=== PATIENT | female | born 1995 | race Caucasian/White ===

== ENCOUNTER 2016-12-08 14:33 | Emergency (ER) | payer BC ==
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
[2016-12-08] MEDS ORDERED: Albuterol/Ipratropium 3.0-0.5 MG/3 ML Neb Soln NEB ONE (15:07)
[2016-12-08] MEDS ORDERED: prednisoLONE Soln 15 MG/5 ML UD Cup PO ONE (16:03)
[2016-12-08 16:34] VITALS: BP 116/67
--- NOTE | 2016-12-09 21:41 | CR ---
EXAM DATE: 12/08/16 PATIENT'S AGE: 21 Patient: TRINI QUINONEZ Facility: [place], [place] Site . Site : 1995 Study: XRay Chest [id number]/12/2017 3:36:02 PM Ordering Physician: Doctor Lagos Final Report: INDICATION: Shortness of breath. Cough and chest pressure. Technique: PA and lateral chest x-ray. Findings: Heart size within normal limits. No focal infiltrate or consolidation either lung. Chest otherwise unremarkable. Dictated by Seven Schaeffer MD @ Dec 08 2016 3:53PM (Electronic Signature) Report Signed by Proxy and Original Signed Document filed in the Medical Record. MTDD
== END 2016-12-08 16:31 | disposition home or self-care (01) ==
LOC: MW.ED 14:33
DX: J45.20 Mild intermittent asthma, uncomplicated (principal); J21.9 Acute bronchiolitis, unspecified; Z88.0 Allergy status to penicillin; Z88.1 Allergy status to other antibiotic agents
CPT/HCPCS: 36415; 71020; 71020-26; 85025; 87081; 87804; 87880; 94664; 99284; 99284-25

== ENCOUNTER 2017-01-15 00:42 | Emergency (ER) | payer BC ==
[2017-01-15] MEDS ORDERED: Bacitracin Oint 1 GM U/D Packet TOP ONE (00:57)
[2017-01-15] MEDS ORDERED: Diphtheria,Pertussis(Acell),Tetanus Vaccine 0.5 ML Syringe IM ONE (00:58)
[2017-01-15] MEDS ORDERED: Acetaminophen/HYDROcodone 325-7.5 MG Tab PO ONE (00:58)
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
[2017-01-15 03:30] VITALS: BP 114/77
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
== END 2017-01-15 02:35 | disposition home or self-care (01) ==
LOC: MW.ED 00:42
DX: S70.02XA Contusion of left hip, initial encounter (principal); S50.12XA Contusion of left forearm, initial encounter; S70.212A Abrasion, left hip, initial encounter; Z23 Encounter for immunization; Z88.0 Allergy status to penicillin; Z88.1 Allergy status to other antibiotic agents; V29.88XA Motorcycle rider (driver) (passenger) injured in other specified transport accidents, initial encounter; Y92.410 Unspecified street and highway as the place of occurrence of the external cause
CPT/HCPCS: 73090; 73502; 90471; 90715; 99283; A9270; 96372; J1885; J2360

== ENCOUNTER 2017-01-15 09:49 | Emergency (ER) | payer BC ==
[2017-01-15] MEDS ORDERED: Ketorolac 60 MG/2 ML SDV IM ONE (10:01)
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
[2017-01-15 10:49] VITALS: BP 103/72
== END 2017-01-15 11:03 | disposition home or self-care (01) ==
LOC: MW.ED 09:49
DX: M62.830 Muscle spasm of back (principal); M25.552 Pain in left hip; F17.200 Nicotine dependence, unspecified, uncomplicated; Z98.890 Other specified postprocedural states; Z88.0 Allergy status to penicillin; Z88.1 Allergy status to other antibiotic agents
CPT/HCPCS: 96372; 99283; J1885; J2360